=== PATIENT | female | born 1990 | race American Indian/Alaskan Native ===

== ENCOUNTER 2020-12-10 13:08 | Outpatient (CLI) | payer MEDICAID ==
[2020-12-10 13:32] VITALS: BP 103/59
[2020-12-10 14:13] LABS: Bilirubin,Urine NEG (Negative); Blood,Urine SM (Negative); Color,Urine Yellow (Yellow); Mucus,Urine FEW /HPF; Protein,Urine <15 mg/dL mg/dL (Negative); Trichomonas,Urine FEW /HPF; Urobilinogen,Urine < 2.0 mg/dL (<2.0)
[2020-12-10] MEDS ORDERED: LACTATED RINGERS 1,000 ML IV ONE (14:38)
== END 2020-12-10 15:00 | disposition home or self-care (01) ==
LOC: TRG 13:08 → APU 13:10 → TRG 15:00
PROVIDERS: ATTEND Obstetrics & Gynecology
DX: Z34.92 Encounter for supervision of normal pregnancy, unspecified, second trimester (principal); Z3A.23 23 weeks gestation of pregnancy
CPT/HCPCS: 59025; 81001; 87086

== ENCOUNTER 2021-01-18 16:35 | Outpatient (CLI) | payer MEDICAID ==
[2021-01-18 17:28] VITALS: BP 94/50
--- NOTE | 2021-01-18 19:55 | Ultrasound Report ---
ULTRASOUND OBSTETRIC LIMITED ULTRASOUND BIOPHYSICAL PROFILE INDICATION / CLINICAL INFORMATION: decreased movement. COMPARISON: None available. FINDINGS: BREATHING MOVEMENT = 2 GROSS BODY MOVEMENT = 2 TONE = 2 QUALITATIVE AMNIOTIC FLUID VOLUME = 2 TOTAL BIOPHYSICAL SCORE = 8/8 AMNIOTIC FLUID INDEX (cm) = 3.4 PRESENTATION: Cephalic. HEART RATE (beats per minute): 133 ADDITIONAL FINDINGS: None. IMPRESSION: 1. Biophysical Score = 8/8 2. Decreased amniotic fluid index of 3.4 cm. Signer Name: Nik Rowell MD Signed: 01/18/2021 7:50 PM Workstation Name: [id number]
== END 2021-01-18 19:06 | disposition home or self-care (01) ==
LOC: TRG 16:35 → APU 16:45 → TRG 19:06
PROVIDERS: ATTEND Obstetrics & Gynecology
DX: O36.8130 Decreased fetal movements, third trimester, not applicable or unspecified (principal); Z3A.28 28 weeks gestation of pregnancy
CPT/HCPCS: 59025; 76819

== ENCOUNTER 2021-04-07 17:04 | Inpatient (IN) | payer MEDICAID ==
[2021-04-07] MEDS ORDERED: fentaNYL 100 MCG/2 ML INJ IV PRN (18:22)
[2021-04-07] MEDS ORDERED: TERBUTALINE 1 MG/1 ML INJ SUB-Q PRN (18:22)
[2021-04-07] MEDS ORDERED: ACETAMINOPHEN 325 MG TAB PO PRN (18:22)
[2021-04-07] MEDS ORDERED: MINERAL OIL 30 ML ORAL LIQD PO PRN (18:22)
[2021-04-07] MEDS ORDERED: LOPERAMIDE 2 MG CAP PO PRN (18:22)
[2021-04-07] MEDS ORDERED: CARBOPROST TROMETHAMINE 250 MCG/1 ML INJ IM PRN (18:22)
[2021-04-07] MEDS ORDERED: PROMETHAZINE 25 MG TAB PO PRN (18:22)
[2021-04-07] MEDS ORDERED: miSOPROStol 200 MCG TAB PR PRN (18:22)
[2021-04-07] MEDS ORDERED: ONDANSETRON 4 MG/2 ML INJ IV PRN (18:22)
[2021-04-07] MEDS ORDERED: OXYTOCIN 10 UNIT/1 ML INJ IM PRN (18:22)
[2021-04-07] MEDS ORDERED: METHYLERGONOVINE MALEATE 0.2 MG/ML VIAL IM PRN (18:22)
[2021-04-07] MEDS ORDERED: NALOXONE 0.4 MG/1 ML INJ IV PRN (18:22)
--- NOTE | 2021-04-07 18:22 | History and Physical Report ---
History of Present Illness Date of examination: 04/07/21 Date of admission: 04/07/21 17:04 Chief complaint: direct admission for [facility] recommendation of delivery History of present illness: EDC Confirmation: 04/08/2021 Past History : 2 Term Births: 0 Premature Births: 0 Living Children: 0 Para: 0 Mult. Births: 0 Prev : 0 Prev. attempt? 0 Aborta: 1 Elect. Ab: 0 Spont. Ab: 0 Ectopics: 1 # 1 Delivery date: 2018 Weeks Gestation: 4 Delivery type: ectopic Delivery location[place] [facility] [place] Comments: methotexate; "bled alot" no transfusion Risk Factors: Smoked Tobacco Use: Never smoker Smokeless Tobacco Use: Never Passive smoke exposure: no Drug use: no HIV high-risk behavior: no Alcohol use: yes Exercise: no Seatbelt use: 100 % Dietary Counseling: pn yes Past Medical History: Reviewed history from 08/06/2020 and no changes required: Negative Past Medical History Past Surgical History: Reviewed history from 08/06/2020 and no changes required: Tonsillectomy Past Medical History 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 Infection History Hx of STD: GC/CT/Trich HIV Risk Eval: no Hepatitis B Risk Eval: low risk Personal hx. of genital herpes: no Partner hx. of genital herpes: no Varicella/Chicken Pox Status: Immunized TB Risk: no Infection History Comments: Varicella + condyloma Chlamydia 2010 Genetic History Congenital Heart Defect: Mom: no Dad: no Emiliana Disease: Mom: no Dad: no Thalassemia Mom: no Dad: no Neural Tube Defect Mom: no Dad: no Down's Syndrome Mom: no Dad: no Bob-Sachs Mom: no Dad: no Sickle Cell Disease/Trait Mom: no Dad: no Hemophilia Mom: no Dad: no Muscular Dystrophy Mom: no Dad: no Cystic Fibrosis Mom: no Dad: no [place] Chorea Mom: no Dad: no Mental Retardation Mom: no Dad: no Fragile X Mom: no Dad: no Other Genetic/Chromosomal Disorder Mom: no Dad: no Child w/other defect Mom: no Dad: no Enviromental Exposures Xray Exposure: no Medication, drug, or alcohol use since LMP: no Chemical/Other Exposure: no Exposure to Cat Liter: no Hx of Parvovirus (Fifth Disease): no Occupational Exposure to Children: none Active Medications (reviewed today): None Current Allergies (reviewed today): PENICILLIN (Critical) Past History Past Medical History: other (see HPI) Past Surgical History: other (see HPI) 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 (see HPI) Family/Genetic History: other (see HPI) Social history: other (see HPI) - Obstetrical History Expected Date of Delivery: 04/08/21 Actual Gestation: 39 Week(s) 6 Day(s) : 2 Para: 0 Hx # Term Pregnancies: 0 Number of Pregnancies: 0 Spontaneous Abortions: 0 Induced : 1 (ectopic) Number of Living Children: 0 Medications and Allergies Allergies Allergy/AdvReac Type Severity Reaction Status Date / Time Penicillins Allergy Swelling Verified 12/10/20 13:34 Home Medications Medication Instructions Recorded Confirmed Last Taken Type metroNIDAZOLE [Flagyl TAB] 500 mg PO ONCE #4 tab 12/10/20 Unknown Rx Review of Systems All systems: negative Genitourinary: no vaginal bleeding, no leakage of fluid, no contractions Allergic/Immunologic: other (reports allergy to Penicillins) - Physical Exam Breasts: Positive: deferred Cardiovascular: Regular rate Lungs: Positive: Normal air movement Abdomen: Positive: normal appearance, soft. Negative: tenderness, guarding, rigidity, organomegaly Genitourinary (Female): Positive: normal external genitalia, normal perenium Vulva: both: normal Vagina: Positive: normal moisture Uterus: Positive: normal size, normal contour, other (gravid) Anus/Rectum: Positive: normal perianal skin Extremities: Positive: normal - Obstetrical FHR: auscultation normal, category 1 Uterine Contraction Monitor Mode: External Cervical Dilatation: 1 Cervical Effacement Percentage: 50 station: -3 Uterine Contraction Pattern: Regular Uterine Tone Measurement Phase: Contraction Uterine Contraction Intensity: Mild Results Result Diagrams: 04/07/21 Unknown All other labs normal. Tests: (1) Vaginitis/Vaginosis, DNA Probe (256305) Order Note: Clinical Information: SRC:VA Annette species [A] Positive Negative *1 Gardnerella vaginalis Negative Negative *2 Trichomonas vaginalis Negative Negative *3 Tests: (1) RPR, Rfx Qn RPR/Confirm TP (006351) RPR Non Reactive Non Reactive *1 Tests: (2) HIV Ag/Ab with Reflex (092032) HIV Screen 4th Generation wRfx Non Reactive Non Reactive *2 Tests: (1) Profile I (369389) HBsAg Screen Negative Negative *1 RPR Non Reactive Non Reactive *2 Rubella Antibodies, IgG 2.92 index Immune >0.99 *3 Non-immune <0.90 Equivocal 0.90 - 0.99 Immune >0.99 ABO Grouping O *4 Rh Factor Positive *5 Please note: Prior records for this patient's ABO / Rh type are not available for additional verification. Antibody Screen Negative Negative *6 WBC 4.7 x10E3/uL 3.4-10.8 *7 RBC 4.18 x10E6/uL 3.77-5.28 *8 Hemoglobin 11.6 g/dL 11.1-15.9 *9 Hematocrit [L] 33.6 % 34.0-46.6 *10 MCV 80 fL 79-97 *11 MCH 27.8 pg 26.6-33.0 *12 MCHC 34.5 g/dL 31.5-35.7 *13 RDW [H] 15.8 % 11.7-15.4 *14 Platelets 269 x10E3/uL 150-450 *15 Neutrophils 61 % Not Estab. *16 Lymphs 28 % Not Estab. *17 Monocytes 7 % Not Estab. *18 Eos 4 % Not Estab. *19 Basos 0 % Not Estab. *20 ! Immature Cells <No Reported Value> *21 Neutrophils (Absolute) 2.9 x10E3/uL 1.4-7.0 *22 Lymphs (Absolute) 1.3 x10E3/uL 0.7-3.1 *23 Monocytes(Absolute) 0.3 x10E3/uL 0.1-0.9 *24 Eos (Absolute) 0.2 x10E3/uL 0.0-0.4 *25 Baso (Absolute) 0.0 x10E3/uL 0.0-0.2 *26 ! Immature Granulocytes 0 % Not Estab. *27 ! Immature Grans (Abs) 0.0 x10E3/uL 0.0-0.1 *28 ! NRBC <No Reported Value> *29 Hematology Comments: <No Reported Value> *30 Tests: (2) Cystic Fibrosis Profile (489884) ! CF, Screen Comment: *31 RESULTS: Negative for 32 mutations analyzed INTERPRETATION: This individual is negative for the mutations analyzed. This negative result may need further interpretation depending on the clinical indication. This result reduces but does not eliminate the risk to be a CF carrier. COMMENTS: The detection rate varies with ethnicity and is listed below. The presence of an undetected mutation in the CF gene cannot be ruled out. In the absence of family history, the remaining risk that a person with a negative result could have at least one CF mutation is listed in the table. If there is a family history of CF, these risk figures do not apply. As detailed information regarding this individual's family history would permit a more accurate assessment of this individual's risk to be a carrier of cystic fibrosis, please contact Victoria Plumb at for a revised report. Mutation Detection Detection rates are based on mutation Rates among Ethnic frequencies in patients affected with Groups cystic fibrosis. Among individuals with an atypical or mild presentation (e.g. congenital absence of the vas deferens, pancreatitis) detection rates may vary from those provided here: Carrier risk reduction when no family history Detection Ethnicity Rate Ashkenazi 08/03 to 97% Congregational 08/02 to 90% (non-) -Mauritian to 69% 46 to 73% to 55% This interpretation is based on the clinical and family relationship information provided and the current understanding of the molecular genetics of this condition. MUTATIONS ANALYZED: G85E V520F G5923E 2183AA to G R117H G542X N1762Q 2184delA R334W S549N 394delTT 2789+5G to A R347H S549R 621+1G to T 3120+1G to A R347P G551D 711+1G to T 3659delC A455E R553X 1078delT 3849+10kbC to T [id number] R560T 1717-1G to A 3876delA [id number] K4505H 1898+1G to A 3905insT METHODS/LIMITATIONS: DNA is isolated from the sample and tested for the 32 CF mutations on the [place] Array Platform ([employer]). Regions of the CFTR gene are amplified enzymatically and subjected to a solution-phase multiplex allele-specific primer extension with subsequent hybridization to a bead array and fluorescence detection. Polymorphisms F508C, I506V and I507V are included in this panel to rule out false positive [id number] homozygotes. Reflex testing of 5T is included in the panel for R117H interpretation. False positive or negative results may occur for reasons that include genetic variants, blood transfusions, bone marrow transplantation, erroneous representation of family relationships or contamination of a sample with maternal cells. REFERENCES: 1. Updates on Carrier Screening for Cystic Fibrosis. (2011) Am J Ob Gynecol 117(4):6878-6954 2. Hao et al. (2004) [facility] 6:387-91 3. Herrera, et al. (2002) [facility] Med 4:379-391 4. Preconception and carrier screening for cystic fibrosis: (2001)ACOG.ACMG publication Results Released By: Vinod Magaña, Ph.D., Research Intern Released By: Vinod Magaña, Ph.D., Director ! Comment: SPRCS *32 The assay provides information intended to be used for carrier screening in adults of reproductive age, as an aid in screening, and as a confirmatory test for another medically established diagnosis in newborns and children. The test is not indicated for use in diagnostic testing, pre-implantation screening, or for any stand-alone diagnostic purposes without confirmation by another medically established diagnostic product or procedure. Tests: (3) HB Solu + Rflx Frac (498697) Hemoglobin (Hgb) Solubility Negative Negative *33 Tests: (4) HIV Ag/Ab with Reflex (476028) HIV Screen 4th Generation wRfx Non Reactive Non Reactive *34 Tests: (5) HCV Antibody reflex to ANNETTE (140780) ! HCV Ab 0.9 s/co ratio 0.0-0.9 *35 Tests: (6) Interpretation: ([id number]) ! Interpretation: SPRCS *36 Negative Not infected with HCV, unless recent infection is suspected or other evidence exists to indicate HCV infection. Ultrasound: other (04/06/21 [facility] US: BPP /, EFW 39% 3435g, VTX, SINCERE 9.7cm) Assessment and Plan Plan of care discussed. Questions encouraged and answered. Pt agrees to cervidil placement. - Patient Problems (1) 39 weeks gestation of Current Visit: Yes Status: Acute Plan to address problem: admit to labor draw labs and start IV 500mL LR Bolus requested to be administered with IV start GBS prophylaxis treatment for unknown status when in active labor or with ROM (2) Velamentous insertion of umbilical cord Current Visit: Yes Status: Acute Plan to address problem: continuous monitoring
[2021-04-07] MEDS ORDERED: ePHEDrine SULFATE 50 MG/1 ML INJ IV PRN (18:40)
[2021-04-07] MEDS ORDERED: LIDOCAINE (2%) 20 MG/1 ML VIAL 20 ML MDV INFILTRATI ONE (18:45)
[2021-04-07 18:47] LABS: Hematocrit 33.2 % (30.3-42.9); Hemoglobin 11.9 gm/dl (10.1-14.3); Mean Corpuscular HGB Conc 36 % (30-34); Mean Corpuscular Volume 83 fl (79-97); Platelet Count 203 K/mm3 (140-440); Red Blood Count 4.01 M/mm3 (3.65-5.03); Red Cell Distribution Width 15.3 % (13.2-15.2)
[2021-04-07] MEDS ORDERED: OXYTOCIN DRIP 30 UNITS/500 ML BAG IV SCH ×2 (19:00)
[2021-04-07] MEDS: LACTATED RINGERS 1,000 ML IV SCH (19:36)
[2021-04-07] MEDS ORDERED: DINOPROSTONE 10 MG VAG SUPP VG ONE (20:00)
--- NOTE | 2021-04-07 21:22 | Event Note ---
Date: 04/07/21 Pt with contractions q2mins. Denies complaints at this time. Plan of care discussed. Questions encouraged and answered. Pt verbalizes understanding and agrees to POC. Cooks catheter placed without difficulty and each balloon inflated with 60mL. Pt tolerated well. Plan to start Pitocin per protocol if contraction pattern allows. Anticipate . Dr. Torres aware.
[2021-04-07] MEDS: BUTORPHANOL 2 MG/1 ML INJ IV PRN (21:30)
[2021-04-08] MEDS: BUTORPHANOL 2 MG/1 ML INJ IV PRN (07:13)
--- NOTE | 2021-04-08 07:54 | Event Note ---
Date: 04/08/21 Pt resting in bed, no complaints at this time. Cooks catheter in place since 2129. Cont. titrating pit for regular contractions, will reassess PRN. Reviewed induction w/ Dr. Foley, will leave Cooks in place at this time.
[2021-04-08] MEDS: LACTATED RINGERS 1,000 ML IV SCH ×2 (08:49→15:12)
--- NOTE | 2021-04-08 12:50 | Progress Note ---
Assessment and Plan Cooks catheter firmly in place, pit up to 12mu/min, Cooks catheter secured w/ traction to inner thigh, pt tolerating well, will reassess PRN - Patient Problems (1) 40 weeks gestation of Current Visit: Yes Status: Acute Subjective - Subjective Date of service: 04/08/21 Principal diagnosis: 40 WEEKS; IOL for Velamentous insertion Patient reports: movement normal, contractions Objective - Vital Signs Vital Signs: Vital Signs - 12hr 04/08/21 04/08/21 04/08/21 00:48 00:53 00:58 Temperature Pulse Rate 75 70 82 Respiratory Rate Blood Pressure Blood Pressure [Right] O2 Sat by Pulse 100 100 99 Oximetry 04/08/21 04/08/21 04/08/21 01:03 01:08 01:13 Temperature Pulse Rate 79 76 73 Respiratory Rate Blood Pressure Blood Pressure [Right] O2 Sat by Pulse 99 99 100 Oximetry 04/08/21 04/08/21 04/08/21 01:18 01:23 01:28 Temperature Pulse Rate 65 89 82 Respiratory Rate Blood Pressure Blood Pressure [Right] O2 Sat by Pulse 100 99 100 Oximetry 04/08/21 04/08/21 04/08/21 01:30 01:33 01:38 Temperature Pulse Rate 67 77 73 Respiratory Rate Blood Pressure 110/58 Blood Pressure [Right] O2 Sat by Pulse 100 100 Oximetry 04/08/21 04/08/21 04/08/21 01:43 01:47 01:53 Temperature Pulse Rate 78 72 73 Respiratory Rate Blood Pressure Blood Pressure [Right] O2 Sat by Pulse 100 100 100 Oximetry 04/08/21 04/08/21 04/08/21 01:58 02:03 02:08 Temperature Pulse Rate 73 82 73 Respiratory Rate Blood Pressure Blood Pressure [Right] O2 Sat by Pulse 100 99 100 Oximetry 04/08/21 04/08/21 04/08/21 02:13 02:18 02:23 Temperature Pulse Rate 86 76 83 Respiratory Rate Blood Pressure Blood Pressure [Right] O2 Sat by Pulse 99 100 99 Oximetry 04/08/21 04/08/21 04/08/21 02:28 02:30 02:33 Temperature Pulse Rate 77 84 77 Respiratory Rate Blood Pressure 112/67 Blood Pressure [Right] O2 Sat by Pulse 100 100 Oximetry 04/08/21 04/08/21 04/08/21 02:38 02:43 02:48 Temperature Pulse Rate 79 79 82 Respiratory Rate Blood Pressure Blood Pressure [Right] O2 Sat by Pulse 100 100 100 Oximetry 04/08/21 04/08/21 04/08/21 02:53 02:58 03:02 Temperature Pulse Rate 81 86 75 Respiratory Rate Blood Pressure Blood Pressure [Right] O2 Sat by Pulse 100 100 100 Oximetry 04/08/21 04/08/21 04/08/21 03:08 03:13 03:18 Temperature Pulse Rate 105 H 80 74 Respiratory Rate Blood Pressure Blood Pressure [Right] O2 Sat by Pulse 100 98 99 Oximetry 04/08/21 04/08/21 04/08/21 03:23 03:28 03:30 Temperature Pulse Rate 86 95 H 82 Respiratory Rate Blood Pressure 110/61 Blood Pressure [Right] O2 Sat by Pulse 99 100 Oximetry 04/08/21 04/08/21 04/08/21 03:33 03:38 03:43 Temperature Pulse Rate 89 82 85 Respiratory Rate Blood Pressure Blood Pressure [Right] O2 Sat by Pulse 99 99 99 Oximetry 04/08/21 04/08/21 04/08/21 03:48 03:53 03:58 Temperature Pulse Rate 90 80 88 Respiratory Rate Blood Pressure Blood Pressure [Right] O2 Sat by Pulse 99 98 100 Oximetry 04/08/21 04/08/21 04/08/21 04:03 04:08 04:13 Temperature Pulse Rate 80 85 86 Respiratory Rate Blood Pressure Blood Pressure [Right] O2 Sat by Pulse 98 98 100 Oximetry 04/08/21 04/08/21 04/08/21 04:18 04:23 04:28 Temperature Pulse Rate 78 88 93 H Respiratory Rate Blood Pressure Blood Pressure [Right] O2 Sat by Pulse 100 99 100 Oximetry 04/08/21 04/08/21 04/08/21 04:29 04:33 04:38 Temperature Pulse Rate 80 80 81 Respiratory Rate Blood Pressure 122/76 Blood Pressure [Right] O2 Sat by Pulse 99 100 Oximetry 04/08/21 04/08/21 04/08/21 04:43 04:55 05:00 Temperature Pulse Rate 80 98 H 100 H Respiratory Rate Blood Pressure Blood Pressure [Right] O2 Sat by Pulse 99 93 100 Oximetry 04/08/21 04/08/21 04/08/21 05:05 05:10 05:15 Temperature Pulse Rate 83 82 93 H Respiratory Rate Blood Pressure Blood Pressure [Right] O2 Sat by Pulse 100 100 100 Oximetry 04/08/21 04/08/21 04/08/21 05:20 05:25 05:29 Temperature Pulse Rate 83 84 80 Respiratory Rate Blood Pressure 121/76 Blood Pressure [Right] O2 Sat by Pulse 100 100 Oximetry 04/08/21 04/08/21 04/08/21 05:30 05:35 05:40 Temperature Pulse Rate 90 90 74 Respiratory Rate Blood Pressure Blood Pressure [Right] O2 Sat by Pulse 99 100 100 Oximetry 04/08/21 04/08/21 04/08/21 05:45 05:50 05:55 Temperature Pulse Rate 79 109 H 85 Respiratory Rate Blood Pressure Blood Pressure [Right] O2 Sat by Pulse 100 99 96 Oximetry 04/08/21 04/08/21 04/08/21 06:00 06:04 06:10 Temperature Pulse Rate 76 74 74 Respiratory Rate Blood Pressure Blood Pressure [Right] O2 Sat by Pulse 99 99 99 Oximetry 04/08/21 04/08/21 04/08/21 06:15 06:20 06:24 Temperature Pulse Rate 73 89 74 Respiratory Rate Blood Pressure Blood Pressure [Right] O2 Sat by Pulse 99 98 98 Oximetry 04/08/21 04/08/21 04/08/21 06:29 06:30 06:35 Temperature Pulse Rate 75 71 87 Respiratory Rate Blood Pressure 109/58 Blood Pressure [Right] O2 Sat by Pulse 99 99 Oximetry 04/08/21 04/08/21 04/08/21 06:40 06:45 06:49 Temperature Pulse Rate 75 77 78 Respiratory Rate Blood Pressure Blood Pressure [Right] O2 Sat by Pulse 99 100 99 Oximetry 04/08/21 04/08/21 04/08/21 06:54 06:59 07:04 Temperature Pulse Rate 75 79 84 Respiratory Rate Blood Pressure Blood Pressure [Right] O2 Sat by Pulse 99 99 100 Oximetry 04/08/21 04/08/21 04/08/21 07:13 07:16 07:18 Temperature Pulse Rate 82 85 83 Respiratory Rate Blood Pressure 126/76 Blood Pressure [Right] O2 Sat by Pulse 100 99 Oximetry 04/08/21 04/08/21 04/08/21 07:23 07:28 07:30 Temperature Pulse Rate 88 93 H 80 Respiratory Rate Blood Pressure 137/83 Blood Pressure [Right] O2 Sat by Pulse 100 100 93 Oximetry 04/08/21 04/08/21 04/08/21 07:33 07:38 07:43 Temperature Pulse Rate 82 89 84 Respiratory Rate Blood Pressure Blood Pressure [Right] O2 Sat by Pulse 100 100 100 Oximetry 04/08/21 04/08/21 04/08/21 07:51 07:56 08:01 Temperature Pulse Rate 83 75 78 Respiratory Rate Blood Pressure Blood Pressure [Right] O2 Sat by Pulse 98 99 98 Oximetry 04/08/21 04/08/21 04/08/21 08:06 08:11 08:16 Temperature Pulse Rate 77 74 74 Respiratory Rate Blood Pressure Blood Pressure [Right] O2 Sat by Pulse 99 99 100 Oximetry 04/08/21 04/08/21 04/08/21 08:21 08:26 08:29 Temperature Pulse Rate 75 77 83 Respiratory Rate Blood Pressure 116/72 Blood Pressure [Right] O2 Sat by Pulse 100 99 Oximetry 04/08/21 04/08/21 04/08/21 08:31 08:36 08:41 Temperature Pulse Rate 76 80 68 Respiratory Rate Blood Pressure Blood Pressure [Right] O2 Sat by Pulse 98 99 98 Oximetry 04/08/21 04/08/21 04/08/21 08:50 08:55 09:00 Temperature Pulse Rate 81 75 77 Respiratory Rate Blood Pressure Blood Pressure [Right] O2 Sat by Pulse 99 99 98 Oximetry 04/08/21 04/08/21 04/08/21 09:05 09:10 09:15 Temperature Pulse Rate 75 74 73 Respiratory Rate Blood Pressure Blood Pressure [Right] O2 Sat by Pulse 99 100 100 Oximetry 04/08/21 04/08/21 04/08/21 09:20 09:23 09:25 Temperature Pulse Rate 74 75 73 Respiratory Rate Blood Pressure Blood Pressure [Right] O2 Sat by Pulse 99 89 99 Oximetry 04/08/21 04/08/21 04/08/21 09:30 09:32 09:35 Temperature Pulse Rate 79 87 76 Respiratory Rate Blood Pressure 112/56 Blood Pressure [Right] O2 Sat by Pulse 97 91 98 Oximetry 04/08/21 04/08/21 04/08/21 09:40 09:45 09:50 Temperature Pulse Rate 72 65 67 Respiratory Rate Blood Pressure Blood Pressure [Right] O2 Sat by Pulse 99 99 100 Oximetry 04/08/21 04/08/21 04/08/21 09:55 10:00 10:03 Temperature Pulse Rate 62 81 86 Respiratory Rate Blood Pressure Blood Pressure [Right] O2 Sat by Pulse 100 98 87 Oximetry 04/08/21 04/08/21 04/08/21 10:05 10:10 10:11 Temperature Pulse Rate 83 78 82 Respiratory Rate Blood Pressure Blood Pressure [Right] O2 Sat by Pulse 88 97 94 Oximetry 04/08/21 04/08/21 04/08/21 10:15 10:19 10:20 Temperature Pulse Rate 80 74 77 Respiratory Rate Blood Pressure Blood Pressure [Right] O2 Sat by Pulse 98 91 97 Oximetry 04/08/21 04/08/21 04/08/21 10:27 10:28 10:31 Temperature Pulse Rate 89 82 Respiratory Rate Blood Pressure 115/67 Blood Pressure [Right] O2 Sat by Pulse 79 L 94 Oximetry 04/08/21 04/08/21 04/08/21 10:32 10:37 10:42 Temperature Pulse Rate 89 68 73 Respiratory Rate Blood Pressure Blood Pressure [Right] O2 Sat by Pulse 98 100 100 Oximetry 04/08/21 04/08/21 04/08/21 10:47 10:52 10:57 Temperature Pulse Rate 74 72 77 Respiratory Rate Blood Pressure Blood Pressure [Right] O2 Sat by Pulse 100 100 100 Oximetry 04/08/21 04/08/21 04/08/21 11:02 11:07 11:12 Temperature Pulse Rate 76 69 71 Respiratory Rate Blood Pressure Blood Pressure [Right] O2 Sat by Pulse 100 100 100 Oximetry 04/08/21 04/08/21 04/08/21 11:17 11:22 11:35 Temperature Pulse Rate 76 85 57 L Respiratory Rate Blood Pressure Blood Pressure [Right] O2 Sat by Pulse 100 100 97 Oximetry 04/08/21 04/08/21 04/08/21 11:36 11:40 11:45 Temperature Pulse Rate 81 74 78 Respiratory Rate Blood Pressure Blood Pressure [Right] O2 Sat by Pulse 92 100 92 Oximetry 04/08/21 04/08/21 04/08/21 11:46 11:50 11:55 Temperature Pulse Rate 67 64 67 Respiratory Rate Blood Pressure 121/71 Blood Pressure [Right] O2 Sat by Pulse 100 100 Oximetry 04/08/21 04/08/21 04/08/21 11:57 12:00 12:05 Temperature Pulse Rate 73 67 68 Respiratory Rate Blood Pressure Blood Pressure [Right] O2 Sat by Pulse 92 100 100 Oximetry 04/08/21 04/08/21 04/08/21 12:10 12:13 12:15 Temperature 98.8 F Pulse Rate 69 74 72 Respiratory 18 Rate Blood Pressure Blood Pressure 121/71 [Right] O2 Sat by Pulse 100 100 100 Oximetry 04/08/21 04/08/21 04/08/21 12:20 12:22 12:25 Temperature Pulse Rate 67 79 83 Respiratory Rate Blood Pressure Blood Pressure [Right] O2 Sat by Pulse 100 94 99 Oximetry 04/08/21 04/08/21 04/08/21 12:30 12:31 12:35 Temperature Pulse Rate 69 68 77 Respiratory Rate Blood Pressure 110/58 Blood Pressure [Right] O2 Sat by Pulse 100 100 Oximetry 04/08/21 04/08/21 12:40 12:45 Temperature Pulse Rate 82 79 Respiratory Rate Blood Pressure Blood Pressure [Right] O2 Sat by Pulse 100 100 Oximetry - Exam Cardiovascular: Regular rate Lungs: Normal air movement Abdomen: Present: normal appearance, soft. Absent: distention, tenderness Vulva: both: normal Uterus: Present: normal FHR: auscultation normal, category 1 Uterine Contraction Monitor Mode: External Uterine Contraction Frequency (min): 2-4 Uterine Contraction Pattern: Regular Uterine Tone Measurement Phase: Resting Uterine Contraction Intensity: Mild - Labs Labs: Abnormal Labs 04/07/21 Unknown MCHC 36 H RDW 15.3 H Laboratory Results - last 24 hr 04/07/21 04/07/21 04/07/21 18:30 Unknown Unknown WBC 7.6 RBC 4.01 Hgb 11.9 Hct 33.2 MCV 83 MCH 30 MCHC 36 H RDW 15.3 H Plt Count 203 Syphilis IgG Antibody Nonreactive Blood Type O POSITIVE Antibody Screen Negative
[2021-04-08] MEDS ORDERED: NALOXONE 2 MG/2 ML INJ IV PRN (15:13)
[2021-04-08] MEDS ORDERED: ePHEDrine SULFATE 50 MG/1 ML INJ IV PRN (15:13)
--- NOTE | 2021-04-08 15:13 | Anesthesia Consultation ---
Anesthesia Consult and Med Hx Date of service: 04/08/21 - Airway Anesthetic Teeth Evaluation: Good ROM Head & Neck: Adequate Mental/Hyoid Distance: Adequate Mallampati Class: Class II Intubation Access Assessment: Probably Good - Pulmonary Exam CTA: Yes - Cardiac Exam Cardiac Exam: RRR - Pre-Operative Health Status ASA Pre-Surgery Classification: ASA2 Proposed Anesthetic Plan: Epidural - Pulmonary Hx Asthma: No COPD: No Hx Pneumonia: No - Cardiovascular System Hx Hypertension: No - Central Nervous System Hx Seizures: No Hx Psychiatric Problems: No - Endocrine Hx Renal Disease: No Hx End Stage Renal Disease: No Hx Hypothyroidism: No Hx Hyperthyroidism: No - Hematic Hx Anemia: No Hx Sickle Cell Disease: No - Other Systems Hx Alcohol Use: No
--- NOTE | 2021-04-08 15:36 | Progress Note ---
Labor Epidural - Labor Epidural Start Time: 15:26 Stop Time: 15:28 Performed by:: ELVER HARDIN Procedure: Patient is requesting epidural for labor pain. H&P, and labs reviewed. Procedure explained, questions answered, consent obtained. Patient in sitting position with blood pressure cuff and pulse ox on and working. Timeout performed immediately before start of procedure. Sterile chlorahexadine 0.5% prep/drape. 3 mL 1% lidocaine skin wheal at L[3]-L[4]. 17-gauge tuohy epidural needle advanced to [id number] with saline at [7] cm. 25-gauge spinal needle advanced until clear, free-flowing CSF. Intrathecal dexmedetomidine [5] mcg administered and needle removed. Epidural catheter advanced to [12] cm, negative aspiration for blood and csf, negative test dose 3 ml 1.5% lidocaine with epinephrine. Sterile steri-strips and tegaderm applied, followed by tape reinforcement. Patient tolerated procedure well.
[2021-04-08] MEDS ORDERED: fentaNYL-BUPIV 2 MCG/ML-0.125% 200 MCG/100 ML BAG EPIDURAL SCH (16:00)
--- NOTE | 2021-04-08 16:39 | Progress Note ---
Assessment and Plan patient comfortable s/p epidural placement, SROM clear fluid. head very well applied and pushing though cervix. Anticipate . - Patient Problems (1) 40 weeks gestation of Current Visit: Yes Status: Acute (2) Velamentous insertion of umbilical cord Current Visit: Yes Status: Acute Qualifiers: Trimester: third trimester Qualified Code(s): O43.123 - Velamentous insertion of umbilical cord, third trimester Subjective - Subjective Date of service: 04/08/21 Principal diagnosis: 40 WEEKS; IOL for Velamentous insertion Patient reports: loss of fluid, movement normal, other (rectal pressure) Objective - Vital Signs Vital Signs: Vital Signs - 12hr 04/08/21 04/08/21 04/08/21 04:38 04:43 04:55 Temperature Pulse Rate 81 80 98 H Respiratory Rate Blood Pressure Blood Pressure [Right] O2 Sat by Pulse 100 99 93 Oximetry 04/08/21 04/08/21 04/08/21 05:00 05:05 05:10 Temperature Pulse Rate 100 H 83 82 Respiratory Rate Blood Pressure Blood Pressure [Right] O2 Sat by Pulse 100 100 100 Oximetry 04/08/21 04/08/21 04/08/21 05:15 05:20 05:25 Temperature Pulse Rate 93 H 83 84 Respiratory Rate Blood Pressure Blood Pressure [Right] O2 Sat by Pulse 100 100 100 Oximetry 04/08/21 04/08/21 04/08/21 05:29 05:30 05:35 Temperature Pulse Rate 80 90 90 Respiratory Rate Blood Pressure 121/76 Blood Pressure [Right] O2 Sat by Pulse 99 100 Oximetry 04/08/21 04/08/21 04/08/21 05:40 05:45 05:50 Temperature Pulse Rate 74 79 109 H Respiratory Rate Blood Pressure Blood Pressure [Right] O2 Sat by Pulse 100 100 99 Oximetry 04/08/21 04/08/21 04/08/21 05:55 06:00 06:04 Temperature Pulse Rate 85 76 74 Respiratory Rate Blood Pressure Blood Pressure [Right] O2 Sat by Pulse 96 99 99 Oximetry 04/08/21 04/08/21 04/08/21 06:10 06:15 06:20 Temperature Pulse Rate 74 73 89 Respiratory Rate Blood Pressure Blood Pressure [Right] O2 Sat by Pulse 99 99 98 Oximetry 04/08/21 04/08/21 04/08/21 06:24 06:29 06:30 Temperature Pulse Rate 74 75 71 Respiratory Rate Blood Pressure 109/58 Blood Pressure [Right] O2 Sat by Pulse 98 99 Oximetry 04/08/21 04/08/21 04/08/21 06:35 06:40 06:45 Temperature Pulse Rate 87 75 77 Respiratory Rate Blood Pressure Blood Pressure [Right] O2 Sat by Pulse 99 99 100 Oximetry 04/08/21 04/08/21 04/08/21 06:49 06:54 06:59 Temperature Pulse Rate 78 75 79 Respiratory Rate Blood Pressure Blood Pressure [Right] O2 Sat by Pulse 99 99 99 Oximetry 04/08/21 04/08/21 04/08/21 07:04 07:13 07:16 Temperature Pulse Rate 84 82 85 Respiratory Rate Blood Pressure 126/76 Blood Pressure [Right] O2 Sat by Pulse 100 100 Oximetry 04/08/21 04/08/21 04/08/21 07:18 07:23 07:28 Temperature Pulse Rate 83 88 93 H Respiratory Rate Blood Pressure Blood Pressure [Right] O2 Sat by Pulse 99 100 100 Oximetry 04/08/21 04/08/21 04/08/21 07:30 07:33 07:38 Temperature Pulse Rate 80 82 89 Respiratory Rate Blood Pressure 137/83 Blood Pressure [Right] O2 Sat by Pulse 93 100 100 Oximetry 04/08/21 04/08/21 04/08/21 07:43 07:51 07:56 Temperature Pulse Rate 84 83 75 Respiratory Rate Blood Pressure Blood Pressure [Right] O2 Sat by Pulse 100 98 99 Oximetry 04/08/21 04/08/21 04/08/21 08:01 08:06 08:11 Temperature Pulse Rate 78 77 74 Respiratory Rate Blood Pressure Blood Pressure [Right] O2 Sat by Pulse 98 99 99 Oximetry 04/08/21 04/08/21 04/08/21 08:16 08:21 08:26 Temperature Pulse Rate 74 75 77 Respiratory Rate Blood Pressure Blood Pressure [Right] O2 Sat by Pulse 100 100 99 Oximetry 04/08/21 04/08/21 04/08/21 08:29 08:31 08:36 Temperature Pulse Rate 83 76 80 Respiratory Rate Blood Pressure 116/72 Blood Pressure [Right] O2 Sat by Pulse 98 99 Oximetry 04/08/21 04/08/21 04/08/21 08:41 08:50 08:55 Temperature Pulse Rate 68 81 75 Respiratory Rate Blood Pressure Blood Pressure [Right] O2 Sat by Pulse 98 99 99 Oximetry 04/08/21 04/08/21 04/08/21 09:00 09:05 09:10 Temperature Pulse Rate 77 75 74 Respiratory Rate Blood Pressure Blood Pressure [Right] O2 Sat by Pulse 98 99 100 Oximetry 04/08/21 04/08/21 04/08/21 09:15 09:20 09:23 Temperature Pulse Rate 73 74 75 Respiratory Rate Blood Pressure Blood Pressure [Right] O2 Sat by Pulse 100 99 89 Oximetry 04/08/21 04/08/21 04/08/21 09:25 09:30 09:32 Temperature Pulse Rate 73 79 87 Respiratory Rate Blood Pressure 112/56 Blood Pressure [Right] O2 Sat by Pulse 99 97 91 Oximetry 04/08/21 04/08/21 04/08/21 09:35 09:40 09:45 Temperature Pulse Rate 76 72 65 Respiratory Rate Blood Pressure Blood Pressure [Right] O2 Sat by Pulse 98 99 99 Oximetry 04/08/21 04/08/21 04/08/21 09:50 09:55 10:00 Temperature Pulse Rate 67 62 81 Respiratory Rate Blood Pressure Blood Pressure [Right] O2 Sat by Pulse 100 100 98 Oximetry 04/08/21 04/08/21 04/08/21 10:03 10:05 10:10 Temperature Pulse Rate 86 83 78 Respiratory Rate Blood Pressure Blood Pressure [Right] O2 Sat by Pulse 87 88 97 Oximetry 04/08/21 04/08/21 04/08/21 10:11 10:15 10:19 Temperature Pulse Rate 82 80 74 Respiratory Rate Blood Pressure Blood Pressure [Right] O2 Sat by Pulse 94 98 91 Oximetry 04/08/21 04/08/21 04/08/21 10:20 10:27 10:28 Temperature Pulse Rate 77 89 Respiratory Rate Blood Pressure Blood Pressure [Right] O2 Sat by Pulse 97 79 L 94 Oximetry 04/08/21 04/08/21 04/08/21 10:31 10:32 10:37 Temperature Pulse Rate 82 89 68 Respiratory Rate Blood Pressure 115/67 Blood Pressure [Right] O2 Sat by Pulse 98 100 Oximetry 04/08/21 04/08/21 04/08/21 10:42 10:47 10:52 Temperature Pulse Rate 73 74 72 Respiratory Rate Blood Pressure Blood Pressure [Right] O2 Sat by Pulse 100 100 100 Oximetry 04/08/21 04/08/21 04/08/21 10:57 11:02 11:07 Temperature Pulse Rate 77 76 69 Respiratory Rate Blood Pressure Blood Pressure [Right] O2 Sat by Pulse 100 100 100 Oximetry 04/08/21 04/08/21 04/08/21 11:12 11:17 11:22 Temperature Pulse Rate 71 76 85 Respiratory Rate Blood Pressure Blood Pressure [Right] O2 Sat by Pulse 100 100 100 Oximetry 04/08/21 04/08/21 04/08/21 11:35 11:36 11:40 Temperature Pulse Rate 57 L 81 74 Respiratory Rate Blood Pressure Blood Pressure [Right] O2 Sat by Pulse 97 92 100 Oximetry 04/08/21 04/08/21 04/08/21 11:45 11:46 11:50 Temperature Pulse Rate 78 67 64 Respiratory Rate Blood Pressure 121/71 Blood Pressure [Right] O2 Sat by Pulse 92 100 Oximetry 04/08/21 04/08/21 04/08/21 11:55 11:57 12:00 Temperature Pulse Rate 67 73 67 Respiratory Rate Blood Pressure Blood Pressure [Right] O2 Sat by Pulse 100 92 100 Oximetry 04/08/21 04/08/21 04/08/21 12:05 12:10 12:13 Temperature 98.8 F Pulse Rate 68 69 74 Respiratory 18 Rate Blood Pressure Blood Pressure 121/71 [Right] O2 Sat by Pulse 100 100 100 Oximetry 04/08/21 04/08/21 04/08/21 12:15 12:20 12:22 Temperature Pulse Rate 72 67 79 Respiratory Rate Blood Pressure Blood Pressure [Right] O2 Sat by Pulse 100 100 94 Oximetry 04/08/21 04/08/21 04/08/21 12:25 12:30 12:31 Temperature Pulse Rate 83 69 68 Respiratory Rate Blood Pressure 110/58 Blood Pressure [Right] O2 Sat by Pulse 99 100 Oximetry 04/08/21 04/08/21 04/08/21 12:35 12:40 12:45 Temperature Pulse Rate 77 82 79 Respiratory Rate Blood Pressure Blood Pressure [Right] O2 Sat by Pulse 100 100 100 Oximetry 04/08/21 04/08/21 04/08/21 12:50 12:55 13:00 Temperature Pulse Rate 76 76 72 Respiratory Rate Blood Pressure Blood Pressure [Right] O2 Sat by Pulse 99 99 100 Oximetry 04/08/21 04/08/21 04/08/21 13:05 13:10 13:15 Temperature Pulse Rate 75 72 70 Respiratory Rate Blood Pressure Blood Pressure [Right] O2 Sat by Pulse 100 99 99 Oximetry 04/08/21 04/08/21 04/08/21 13:20 13:25 13:29 Temperature Pulse Rate 77 76 73 Respiratory Rate Blood Pressure 125/61 Blood Pressure [Right] O2 Sat by Pulse 100 100 Oximetry 04/08/21 04/08/21 04/08/21 13:30 13:35 13:40 Temperature Pulse Rate 82 70 72 Respiratory Rate Blood Pressure Blood Pressure [Right] O2 Sat by Pulse 100 100 100 Oximetry 04/08/21 04/08/21 04/08/21 13:45 13:50 14:01 Temperature Pulse Rate 83 78 Respiratory Rate Blood Pressure Blood Pressure [Right] O2 Sat by Pulse 100 100 95 Oximetry 04/08/21 04/08/21 04/08/21 14:06 14:11 14:16 Temperature Pulse Rate 88 78 72 Respiratory Rate Blood Pressure Blood Pressure [Right] O2 Sat by Pulse 100 100 99 Oximetry 04/08/21 04/08/21 04/08/21 14:21 14:26 14:29 Temperature Pulse Rate 70 76 75 Respiratory Rate Blood Pressure 123/56 Blood Pressure [Right] O2 Sat by Pulse 100 100 Oximetry 04/08/21 04/08/21 04/08/21 14:45 14:50 14:55 Temperature Pulse Rate 74 80 90 Respiratory Rate Blood Pressure Blood Pressure [Right] O2 Sat by Pulse 100 100 100 Oximetry 04/08/21 04/08/21 04/08/21 15:00 15:05 15:10 Temperature Pulse Rate 73 79 79 Respiratory Rate Blood Pressure Blood Pressure [Right] O2 Sat by Pulse 100 100 99 Oximetry 04/08/21 04/08/21 04/08/21 15:17 15:19 15:22 Temperature Pulse Rate 79 72 77 Respiratory Rate Blood Pressure 138/80 Blood Pressure [Right] O2 Sat by Pulse 98 100 Oximetry 04/08/21 04/08/21 04/08/21 15:27 15:28 15:30 Temperature Pulse Rate 88 83 76 Respiratory Rate Blood Pressure 154/80 136/65 Blood Pressure [Right] O2 Sat by Pulse 100 Oximetry 04/08/21 04/08/21 04/08/21 15:32 15:37 15:41 Temperature Pulse Rate 72 74 75 Respiratory Rate Blood Pressure 135/71 136/73 Blood Pressure [Right] O2 Sat by Pulse 99 98 Oximetry 04/08/21 04/08/21 04/08/21 15:42 15:47 15:52 Temperature Pulse Rate 79 90 91 H Respiratory Rate Blood Pressure Blood Pressure [Right] O2 Sat by Pulse 99 99 100 Oximetry 04/08/21 04/08/21 04/08/21 15:56 15:57 16:02 Temperature Pulse Rate 70 85 85 Respiratory Rate Blood Pressure 135/72 Blood Pressure [Right] O2 Sat by Pulse 100 100 Oximetry 04/08/21 04/08/21 04/08/21 16:07 16:11 16:12 Temperature Pulse Rate 77 71 85 Respiratory Rate Blood Pressure 131/75 Blood Pressure [Right] O2 Sat by Pulse 100 100 Oximetry 04/08/21 04/08/21 04/08/21 16:17 16:22 16:27 Temperature Pulse Rate 73 65 62 Respiratory Rate Blood Pressure 126/58 Blood Pressure [Right] O2 Sat by Pulse 100 100 100 Oximetry 04/08/21 04/08/21 16:30 16:32 Temperature Pulse Rate 73 71 Respiratory Rate Blood Pressure Blood Pressure [Right] O2 Sat by Pulse 88 100 Oximetry - Exam Lungs: Normal air movement Abdomen: Present: soft Uterus: Present: normal FHR: category 1 Uterine Contraction Monitor Mode: External Cervical Dilatation: 6.5 Cervical Effacement Percentage: 80 station: 0 Uterine Contraction Frequency (min): 2-3 Uterine Contraction Duration: 60 Uterine Contraction Pattern: Regular Uterine Tone Measurement Phase: Contraction Uterine Contraction Intensity: Strong/Firm Extremities: normal - Labs Labs: Abnormal Labs 04/07/21 Unknown MCHC 36 H RDW 15.3 H Laboratory Results - last 24 hr 04/07/21 04/07/21 04/07/21 18:30 Unknown Unknown WBC 7.6 RBC 4.01 Hgb 11.9 Hct 33.2 MCV 83 MCH 30 MCHC 36 H RDW 15.3 H Plt Count 203 Syphilis IgG Antibody Nonreactive Coronavirus (PCR) Blood Type O POSITIVE Antibody Screen Negative 04/08/21 09:35 WBC RBC Hgb Hct MCV MCH MCHC RDW Plt Count Syphilis IgG Antibody Coronavirus (PCR) Negative Blood Type Antibody Screen
--- NOTE | 2021-04-08 18:18 | Progress Note ---
Assessment and Plan early variables noted while reviewing FHT, SVE now with good decent of head with ctx. Cervix felt all around but mostly on pt's left side. Will continue to monitor patient, anticipate . - Patient Problems (1) 40 weeks gestation of Current Visit: Yes Status: Acute (2) Velamentous insertion of umbilical cord Current Visit: Yes Status: Acute Qualifiers: Trimester: third trimester Qualified Code(s): O43.123 - Velamentous insertion of umbilical cord, third trimester Subjective - Subjective Date of service: 04/08/21 Principal diagnosis: 40 WEEKS; IOL for Velamentous insertion Patient reports: other (rectal pressure) Objective - Vital Signs Vital Signs: Vital Signs - 12hr 04/08/21 04/08/21 04/08/21 06:20 06:24 06:29 Temperature Pulse Rate 89 74 75 Respiratory Rate Blood Pressure Blood Pressure [Right] O2 Sat by Pulse 98 98 99 Oximetry 04/08/21 04/08/21 04/08/21 06:30 06:35 06:40 Temperature Pulse Rate 71 87 75 Respiratory Rate Blood Pressure 109/58 Blood Pressure [Right] O2 Sat by Pulse 99 99 Oximetry 04/08/21 04/08/21 04/08/21 06:45 06:49 06:54 Temperature Pulse Rate 77 78 75 Respiratory Rate Blood Pressure Blood Pressure [Right] O2 Sat by Pulse 100 99 99 Oximetry 04/08/21 04/08/21 04/08/21 06:59 07:04 07:13 Temperature Pulse Rate 79 84 82 Respiratory Rate Blood Pressure Blood Pressure [Right] O2 Sat by Pulse 99 100 100 Oximetry 04/08/21 04/08/21 04/08/21 07:16 07:18 07:23 Temperature Pulse Rate 85 83 88 Respiratory Rate Blood Pressure 126/76 Blood Pressure [Right] O2 Sat by Pulse 99 100 Oximetry 04/08/21 04/08/21 04/08/21 07:28 07:30 07:33 Temperature Pulse Rate 93 H 80 82 Respiratory Rate Blood Pressure 137/83 Blood Pressure [Right] O2 Sat by Pulse 100 93 100 Oximetry 04/08/21 04/08/21 04/08/21 07:38 07:43 07:51 Temperature Pulse Rate 89 84 83 Respiratory Rate Blood Pressure Blood Pressure [Right] O2 Sat by Pulse 100 100 98 Oximetry 04/08/21 04/08/21 04/08/21 07:56 08:01 08:06 Temperature Pulse Rate 75 78 77 Respiratory Rate Blood Pressure Blood Pressure [Right] O2 Sat by Pulse 99 98 99 Oximetry 04/08/21 04/08/21 04/08/21 08:11 08:16 08:21 Temperature Pulse Rate 74 74 75 Respiratory Rate Blood Pressure Blood Pressure [Right] O2 Sat by Pulse 99 100 100 Oximetry 04/08/21 04/08/21 04/08/21 08:26 08:29 08:31 Temperature Pulse Rate 77 83 76 Respiratory Rate Blood Pressure 116/72 Blood Pressure [Right] O2 Sat by Pulse 99 98 Oximetry 04/08/21 04/08/21 04/08/21 08:36 08:41 08:50 Temperature Pulse Rate 80 68 81 Respiratory Rate Blood Pressure Blood Pressure [Right] O2 Sat by Pulse 99 98 99 Oximetry 04/08/21 04/08/21 04/08/21 08:55 09:00 09:05 Temperature Pulse Rate 75 77 75 Respiratory Rate Blood Pressure Blood Pressure [Right] O2 Sat by Pulse 99 98 99 Oximetry 04/08/21 04/08/21 04/08/21 09:10 09:15 09:20 Temperature Pulse Rate 74 73 74 Respiratory Rate Blood Pressure Blood Pressure [Right] O2 Sat by Pulse 100 100 99 Oximetry 04/08/21 04/08/21 04/08/21 09:23 09:25 09:30 Temperature Pulse Rate 75 73 79 Respiratory Rate Blood Pressure 112/56 Blood Pressure [Right] O2 Sat by Pulse 89 99 97 Oximetry 04/08/21 04/08/21 04/08/21 09:32 09:35 09:40 Temperature Pulse Rate 87 76 72 Respiratory Rate Blood Pressure Blood Pressure [Right] O2 Sat by Pulse 91 98 99 Oximetry 04/08/21 04/08/21 04/08/21 09:45 09:50 09:55 Temperature Pulse Rate 65 67 62 Respiratory Rate Blood Pressure Blood Pressure [Right] O2 Sat by Pulse 99 100 100 Oximetry 04/08/21 04/08/21 04/08/21 10:00 10:03 10:05 Temperature Pulse Rate 81 86 83 Respiratory Rate Blood Pressure Blood Pressure [Right] O2 Sat by Pulse 98 87 88 Oximetry 04/08/21 04/08/21 04/08/21 10:10 10:11 10:15 Temperature Pulse Rate 78 82 80 Respiratory Rate Blood Pressure Blood Pressure [Right] O2 Sat by Pulse 97 94 98 Oximetry 04/08/21 04/08/21 04/08/21 10:19 10:20 10:27 Temperature Pulse Rate 74 77 Respiratory Rate Blood Pressure Blood Pressure [Right] O2 Sat by Pulse 91 97 79 L Oximetry 04/08/21 04/08/21 04/08/21 10:28 10:31 10:32 Temperature Pulse Rate 89 82 89 Respiratory Rate Blood Pressure 115/67 Blood Pressure [Right] O2 Sat by Pulse 94 98 Oximetry 04/08/21 04/08/21 04/08/21 10:37 10:42 10:47 Temperature Pulse Rate 68 73 74 Respiratory Rate Blood Pressure Blood Pressure [Right] O2 Sat by Pulse 100 100 100 Oximetry 04/08/21 04/08/21 04/08/21 10:52 10:57 11:02 Temperature Pulse Rate 72 77 76 Respiratory Rate Blood Pressure Blood Pressure [Right] O2 Sat by Pulse 100 100 100 Oximetry 04/08/21 04/08/21 04/08/21 11:07 11:12 11:17 Temperature Pulse Rate 69 71 76 Respiratory Rate Blood Pressure Blood Pressure [Right] O2 Sat by Pulse 100 100 100 Oximetry 04/08/21 04/08/21 04/08/21 11:22 11:35 11:36 Temperature Pulse Rate 85 57 L 81 Respiratory Rate Blood Pressure Blood Pressure [Right] O2 Sat by Pulse 100 97 92 Oximetry 04/08/21 04/08/21 04/08/21 11:40 11:45 11:46 Temperature Pulse Rate 74 78 67 Respiratory Rate Blood Pressure 121/71 Blood Pressure [Right] O2 Sat by Pulse 100 92 Oximetry 04/08/21 04/08/21 04/08/21 11:50 11:55 11:57 Temperature Pulse Rate 64 67 73 Respiratory Rate Blood Pressure Blood Pressure [Right] O2 Sat by Pulse 100 100 92 Oximetry 04/08/21 04/08/21 04/08/21 12:00 12:05 12:10 Temperature Pulse Rate 67 68 69 Respiratory Rate Blood Pressure Blood Pressure [Right] O2 Sat by Pulse 100 100 100 Oximetry 04/08/21 04/08/21 04/08/21 12:13 12:15 12:20 Temperature 98.8 F Pulse Rate 74 72 67 Respiratory 18 Rate Blood Pressure Blood Pressure 121/71 [Right] O2 Sat by Pulse 100 100 100 Oximetry 04/08/21 04/08/21 04/08/21 12:22 12:25 12:30 Temperature Pulse Rate 79 83 69 Respiratory Rate Blood Pressure Blood Pressure [Right] O2 Sat by Pulse 94 99 100 Oximetry 04/08/21 04/08/21 04/08/21 12:31 12:35 12:40 Temperature Pulse Rate 68 77 82 Respiratory Rate Blood Pressure 110/58 Blood Pressure [Right] O2 Sat by Pulse 100 100 Oximetry 04/08/21 04/08/21 04/08/21 12:45 12:50 12:55 Temperature Pulse Rate 79 76 76 Respiratory Rate Blood Pressure Blood Pressure [Right] O2 Sat by Pulse 100 99 99 Oximetry 04/08/21 04/08/21 04/08/21 13:00 13:05 13:10 Temperature Pulse Rate 72 75 72 Respiratory Rate Blood Pressure Blood Pressure [Right] O2 Sat by Pulse 100 100 99 Oximetry 04/08/21 04/08/21 04/08/21 13:15 13:20 13:25 Temperature Pulse Rate 70 77 76 Respiratory Rate Blood Pressure Blood Pressure [Right] O2 Sat by Pulse 99 100 100 Oximetry 04/08/21 04/08/21 04/08/21 13:29 13:30 13:35 Temperature Pulse Rate 73 82 70 Respiratory Rate Blood Pressure 125/61 Blood Pressure [Right] O2 Sat by Pulse 100 100 Oximetry 04/08/21 04/08/21 04/08/21 13:40 13:45 13:50 Temperature Pulse Rate 72 83 78 Respiratory Rate Blood Pressure Blood Pressure [Right] O2 Sat by Pulse 100 100 100 Oximetry 04/08/21 04/08/21 04/08/21 14:01 14:06 14:11 Temperature Pulse Rate 88 78 Respiratory Rate Blood Pressure Blood Pressure [Right] O2 Sat by Pulse 95 100 100 Oximetry 04/08/21 04/08/21 04/08/21 14:16 14:21 14:26 Temperature Pulse Rate 72 70 76 Respiratory Rate Blood Pressure Blood Pressure [Right] O2 Sat by Pulse 99 100 100 Oximetry 04/08/21 04/08/21 04/08/21 14:29 14:45 14:50 Temperature Pulse Rate 75 74 80 Respiratory Rate Blood Pressure 123/56 Blood Pressure [Right] O2 Sat by Pulse 100 100 Oximetry 04/08/21 04/08/21 04/08/21 14:55 15:00 15:05 Temperature Pulse Rate 90 73 79 Respiratory Rate Blood Pressure Blood Pressure [Right] O2 Sat by Pulse 100 100 100 Oximetry 04/08/21 04/08/21 04/08/21 15:10 15:17 15:19 Temperature Pulse Rate 79 79 72 Respiratory Rate Blood Pressure 138/80 Blood Pressure [Right] O2 Sat by Pulse 99 98 Oximetry 04/08/21 04/08/21 04/08/21 15:22 15:27 15:28 Temperature Pulse Rate 77 88 83 Respiratory Rate Blood Pressure 154/80 Blood Pressure [Right] O2 Sat by Pulse 100 100 Oximetry 04/08/21 04/08/21 04/08/21 15:30 15:32 15:37 Temperature Pulse Rate 76 72 74 Respiratory Rate Blood Pressure 136/65 135/71 Blood Pressure [Right] O2 Sat by Pulse 99 98 Oximetry 04/08/21 04/08/21 04/08/21 15:41 15:42 15:47 Temperature Pulse Rate 75 79 90 Respiratory Rate Blood Pressure 136/73 Blood Pressure [Right] O2 Sat by Pulse 99 99 Oximetry 04/08/21 04/08/21 04/08/21 15:52 15:56 15:57 Temperature Pulse Rate 91 H 70 85 Respiratory Rate Blood Pressure 135/72 Blood Pressure [Right] O2 Sat by Pulse 100 100 Oximetry 04/08/21 04/08/21 04/08/21 16:02 16:07 16:11 Temperature Pulse Rate 85 77 71 Respiratory Rate Blood Pressure 131/75 Blood Pressure [Right] O2 Sat by Pulse 100 100 Oximetry 04/08/21 04/08/21 04/08/21 16:12 16:17 16:22 Temperature Pulse Rate 85 73 65 Respiratory Rate Blood Pressure Blood Pressure [Right] O2 Sat by Pulse 100 100 100 Oximetry 04/08/21 04/08/21 04/08/21 16:27 16:30 16:32 Temperature Pulse Rate 62 73 71 Respiratory Rate Blood Pressure 126/58 Blood Pressure [Right] O2 Sat by Pulse 100 88 100 Oximetry 04/08/21 04/08/21 04/08/21 16:37 16:41 16:42 Temperature Pulse Rate 67 61 62 Respiratory Rate Blood Pressure 121/61 Blood Pressure [Right] O2 Sat by Pulse 100 99 Oximetry 04/08/21 04/08/21 04/08/21 16:47 16:52 16:57 Temperature Pulse Rate 61 64 70 Respiratory Rate Blood Pressure 119/61 Blood Pressure [Right] O2 Sat by Pulse 100 100 100 Oximetry 04/08/21 04/08/21 04/08/21 17:02 17:07 17:12 Temperature Pulse Rate 70 67 71 Respiratory Rate Blood Pressure 111/71 Blood Pressure [Right] O2 Sat by Pulse 100 100 100 Oximetry 04/08/21 04/08/21 04/08/21 17:17 17:22 17:25 Temperature Pulse Rate 66 67 60 Respiratory Rate Blood Pressure 110/59 Blood Pressure [Right] O2 Sat by Pulse 100 100 Oximetry 04/08/21 04/08/21 04/08/21 17:27 17:32 17:37 Temperature Pulse Rate 65 70 66 Respiratory Rate Blood Pressure Blood Pressure [Right] O2 Sat by Pulse 100 100 100 Oximetry 04/08/21 04/08/21 04/08/21 17:41 17:42 17:47 Temperature 98.3 F Pulse Rate 73 74 65 Respiratory Rate Blood Pressure 121/63 Blood Pressure [Right] O2 Sat by Pulse 100 99 Oximetry 04/08/21 04/08/21 04/08/21 17:52 17:56 17:57 Temperature Pulse Rate 70 66 75 Respiratory Rate Blood Pressure 109/56 Blood Pressure [Right] O2 Sat by Pulse 99 100 Oximetry 04/08/21 04/08/21 04/08/21 18:02 18:07 18:10 Temperature Pulse Rate 83 75 74 Respiratory Rate Blood Pressure 112/66 Blood Pressure [Right] O2 Sat by Pulse 100 99 Oximetry 04/08/21 18:12 Temperature Pulse Rate 75 Respiratory Rate Blood Pressure Blood Pressure [Right] O2 Sat by Pulse 99 Oximetry - Exam Lungs: Normal air movement Abdomen: Present: normal appearance, soft Vulva: both: normal Uterus: Present: normal FHR: category 2 Uterine Contraction Monitor Mode: External Cervical Dilatation: 9 Cervical Effacement Percentage: 90 station: 0 Uterine Contraction Pattern: Regular Uterine Tone Measurement Phase: Contraction Uterine Contraction Intensity: Strong/Firm - Labs Labs: Abnormal Labs 04/07/21 Unknown MCHC 36 H RDW 15.3 H Laboratory Results - last 24 hr 04/07/21 04/07/21 04/07/21 18:30 Unknown Unknown WBC 7.6 RBC 4.01 Hgb 11.9 Hct 33.2 MCV 83 MCH 30 MCHC 36 H RDW 15.3 H Plt Count 203 Syphilis IgG Antibody Nonreactive Coronavirus (PCR) Blood Type O POSITIVE Antibody Screen Negative 04/08/21 09:35 WBC RBC Hgb Hct MCV MCH MCHC RDW Plt Count Syphilis IgG Antibody Coronavirus (PCR) Negative Blood Type Antibody Screen
--- NOTE | 2021-04-08 19:54 | Progress Note ---
Assessment and Plan A: 30 y.o. @ 40 wks, active labor. Cervical exam /+1. P: Reposition pt in bed. Labor down for 30 minutes. Anticipate . Subjective - Subjective Date of service: 04/08/21 (Pt comfortable with epidural. ) Principal diagnosis: 40 WEEKS; IOL for Velamentous insertion Patient reports: other (Feeling some intermittent lower abdominal pressure. ) Objective - Vital Signs Vital Signs: Vital Signs - 12hr 04/08/21 04/08/21 04/08/21 07:51 07:56 08:01 Temperature Pulse Rate 83 75 78 Respiratory Rate Blood Pressure Blood Pressure [Right] O2 Sat by Pulse 98 99 98 Oximetry O2 Sat by Pulse Oximetry [ Bilateral] 04/08/21 04/08/21 04/08/21 08:06 08:11 08:16 Temperature Pulse Rate 77 74 74 Respiratory Rate Blood Pressure Blood Pressure [Right] O2 Sat by Pulse 99 99 100 Oximetry O2 Sat by Pulse Oximetry [ Bilateral] 04/08/21 04/08/21 04/08/21 08:21 08:26 08:29 Temperature Pulse Rate 75 77 83 Respiratory Rate Blood Pressure 116/72 Blood Pressure [Right] O2 Sat by Pulse 100 99 Oximetry O2 Sat by Pulse Oximetry [ Bilateral] 04/08/21 04/08/21 04/08/21 08:31 08:36 08:41 Temperature Pulse Rate 76 80 68 Respiratory Rate Blood Pressure Blood Pressure [Right] O2 Sat by Pulse 98 99 98 Oximetry O2 Sat by Pulse Oximetry [ Bilateral] 04/08/21 04/08/21 04/08/21 08:50 08:55 09:00 Temperature Pulse Rate 81 75 77 Respiratory Rate Blood Pressure Blood Pressure [Right] O2 Sat by Pulse 99 99 98 Oximetry O2 Sat by Pulse Oximetry [ Bilateral] 04/08/21 04/08/21 04/08/21 09:05 09:10 09:15 Temperature Pulse Rate 75 74 73 Respiratory Rate Blood Pressure Blood Pressure [Right] O2 Sat by Pulse 99 100 100 Oximetry O2 Sat by Pulse Oximetry [ Bilateral] 04/08/21 04/08/21 04/08/21 09:20 09:23 09:25 Temperature Pulse Rate 74 75 73 Respiratory Rate Blood Pressure Blood Pressure [Right] O2 Sat by Pulse 99 89 99 Oximetry O2 Sat by Pulse Oximetry [ Bilateral] 04/08/21 04/08/21 04/08/21 09:30 09:32 09:35 Temperature Pulse Rate 79 87 76 Respiratory Rate Blood Pressure 112/56 Blood Pressure [Right] O2 Sat by Pulse 97 91 98 Oximetry O2 Sat by Pulse Oximetry [ Bilateral] 04/08/21 04/08/21 04/08/21 09:40 09:45 09:50 Temperature Pulse Rate 72 65 67 Respiratory Rate Blood Pressure Blood Pressure [Right] O2 Sat by Pulse 99 99 100 Oximetry O2 Sat by Pulse Oximetry [ Bilateral] 04/08/21 04/08/21 04/08/21 09:55 10:00 10:03 Temperature Pulse Rate 62 81 86 Respiratory Rate Blood Pressure Blood Pressure [Right] O2 Sat by Pulse 100 98 87 Oximetry O2 Sat by Pulse Oximetry [ Bilateral] 04/08/21 04/08/21 04/08/21 10:05 10:10 10:11 Temperature Pulse Rate 83 78 82 Respiratory Rate Blood Pressure Blood Pressure [Right] O2 Sat by Pulse 88 97 94 Oximetry O2 Sat by Pulse Oximetry [ Bilateral] 04/08/21 04/08/21 04/08/21 10:15 10:19 10:20 Temperature Pulse Rate 80 74 77 Respiratory Rate Blood Pressure Blood Pressure [Right] O2 Sat by Pulse 98 91 97 Oximetry O2 Sat by Pulse Oximetry [ Bilateral] 04/08/21 04/08/21 04/08/21 10:27 10:28 10:31 Temperature Pulse Rate 89 82 Respiratory Rate Blood Pressure 115/67 Blood Pressure [Right] O2 Sat by Pulse 79 L 94 Oximetry O2 Sat by Pulse Oximetry [ Bilateral] 04/08/21 04/08/21 04/08/21 10:32 10:37 10:42 Temperature Pulse Rate 89 68 73 Respiratory Rate Blood Pressure Blood Pressure [Right] O2 Sat by Pulse 98 100 100 Oximetry O2 Sat by Pulse Oximetry [ Bilateral] 04/08/21 04/08/21 04/08/21 10:47 10:52 10:57 Temperature Pulse Rate 74 72 77 Respiratory Rate Blood Pressure Blood Pressure [Right] O2 Sat by Pulse 100 100 100 Oximetry O2 Sat by Pulse Oximetry [ Bilateral] 04/08/21 04/08/21 04/08/21 11:02 11:07 11:12 Temperature Pulse Rate 76 69 71 Respiratory Rate Blood Pressure Blood Pressure [Right] O2 Sat by Pulse 100 100 100 Oximetry O2 Sat by Pulse Oximetry [ Bilateral] 04/08/21 04/08/21 04/08/21 11:17 11:22 11:35 Temperature Pulse Rate 76 85 57 L Respiratory Rate Blood Pressure Blood Pressure [Right] O2 Sat by Pulse 100 100 97 Oximetry O2 Sat by Pulse Oximetry [ Bilateral] 04/08/21 04/08/21 04/08/21 11:36 11:40 11:45 Temperature Pulse Rate 81 74 78 Respiratory Rate Blood Pressure Blood Pressure [Right] O2 Sat by Pulse 92 100 92 Oximetry O2 Sat by Pulse Oximetry [ Bilateral] 04/08/21 04/08/21 04/08/21 11:46 11:50 11:55 Temperature Pulse Rate 67 64 67 Respiratory Rate Blood Pressure 121/71 Blood Pressure [Right] O2 Sat by Pulse 100 100 Oximetry O2 Sat by Pulse Oximetry [ Bilateral] 04/08/21 04/08/21 04/08/21 11:57 12:00 12:05 Temperature Pulse Rate 73 67 68 Respiratory Rate Blood Pressure Blood Pressure [Right] O2 Sat by Pulse 92 100 100 Oximetry O2 Sat by Pulse Oximetry [ Bilateral] 04/08/21 04/08/21 04/08/21 12:10 12:13 12:15 Temperature 98.8 F Pulse Rate 69 74 72 Respiratory 18 Rate Blood Pressure Blood Pressure 121/71 [Right] O2 Sat by Pulse 100 100 100 Oximetry O2 Sat by Pulse Oximetry [ Bilateral] 04/08/21 04/08/21 04/08/21 12:20 12:22 12:25 Temperature Pulse Rate 67 79 83 Respiratory Rate Blood Pressure Blood Pressure [Right] O2 Sat by Pulse 100 94 99 Oximetry O2 Sat by Pulse Oximetry [ Bilateral] 04/08/21 04/08/21 04/08/21 12:30 12:31 12:35 Temperature Pulse Rate 69 68 77 Respiratory Rate Blood Pressure 110/58 Blood Pressure [Right] O2 Sat by Pulse 100 100 Oximetry O2 Sat by Pulse Oximetry [ Bilateral] 04/08/21 04/08/21 04/08/21 12:40 12:45 12:50 Temperature Pulse Rate 82 79 76 Respiratory Rate Blood Pressure Blood Pressure [Right] O2 Sat by Pulse 100 100 99 Oximetry O2 Sat by Pulse Oximetry [ Bilateral] 04/08/21 04/08/21 04/08/21 12:55 13:00 13:05 Temperature Pulse Rate 76 72 75 Respiratory Rate Blood Pressure Blood Pressure [Right] O2 Sat by Pulse 99 100 100 Oximetry O2 Sat by Pulse Oximetry [ Bilateral] 04/08/21 04/08/21 04/08/21 13:10 13:15 13:20 Temperature Pulse Rate 72 70 77 Respiratory Rate Blood Pressure Blood Pressure [Right] O2 Sat by Pulse 99 99 100 Oximetry O2 Sat by Pulse Oximetry [ Bilateral] 04/08/21 04/08/21 04/08/21 13:25 13:29 13:30 Temperature Pulse Rate 76 73 82 Respiratory Rate Blood Pressure 125/61 Blood Pressure [Right] O2 Sat by Pulse 100 100 Oximetry O2 Sat by Pulse Oximetry [ Bilateral] 04/08/21 04/08/21 04/08/21 13:35 13:40 13:45 Temperature Pulse Rate 70 72 83 Respiratory Rate Blood Pressure Blood Pressure [Right] O2 Sat by Pulse 100 100 100 Oximetry O2 Sat by Pulse Oximetry [ Bilateral] 04/08/21 04/08/21 04/08/21 13:50 14:01 14:06 Temperature Pulse Rate 78 88 Respiratory Rate Blood Pressure Blood Pressure [Right] O2 Sat by Pulse 100 95 100 Oximetry O2 Sat by Pulse Oximetry [ Bilateral] 04/08/21 04/08/21 04/08/21 14:11 14:16 14:21 Temperature Pulse Rate 78 72 70 Respiratory Rate Blood Pressure Blood Pressure [Right] O2 Sat by Pulse 100 99 100 Oximetry O2 Sat by Pulse Oximetry [ Bilateral] 04/08/21 04/08/21 04/08/21 14:26 14:29 14:45 Temperature Pulse Rate 76 75 74 Respiratory Rate Blood Pressure 123/56 Blood Pressure [Right] O2 Sat by Pulse 100 100 Oximetry O2 Sat by Pulse Oximetry [ Bilateral] 04/08/21 04/08/21 04/08/21 14:50 14:55 15:00 Temperature Pulse Rate 80 90 73 Respiratory Rate Blood Pressure Blood Pressure [Right] O2 Sat by Pulse 100 100 100 Oximetry O2 Sat by Pulse Oximetry [ Bilateral] 04/08/21 04/08/21 04/08/21 15:05 15:10 15:17 Temperature Pulse Rate 79 79 79 Respiratory Rate Blood Pressure Blood Pressure [Right] O2 Sat by Pulse 100 99 98 Oximetry O2 Sat by Pulse Oximetry [ Bilateral] 04/08/21 04/08/21 04/08/21 15:19 15:22 15:27 Temperature Pulse Rate 72 77 88 Respiratory Rate Blood Pressure 138/80 Blood Pressure [Right] O2 Sat by Pulse 100 100 Oximetry O2 Sat by Pulse Oximetry [ Bilateral] 04/08/21 04/08/21 04/08/21 15:28 15:30 15:32 Temperature Pulse Rate 83 76 72 Respiratory Rate Blood Pressure 154/80 136/65 Blood Pressure [Right] O2 Sat by Pulse 99 Oximetry O2 Sat by Pulse Oximetry [ Bilateral] 04/08/21 04/08/21 04/08/21 15:37 15:41 15:42 Temperature Pulse Rate 74 75 79 Respiratory Rate Blood Pressure 135/71 136/73 Blood Pressure [Right] O2 Sat by Pulse 98 99 Oximetry O2 Sat by Pulse Oximetry [ Bilateral] 04/08/21 04/08/21 04/08/21 15:47 15:52 15:56 Temperature Pulse Rate 90 91 H 70 Respiratory Rate Blood Pressure 135/72 Blood Pressure [Right] O2 Sat by Pulse 99 100 Oximetry O2 Sat by Pulse Oximetry [ Bilateral] 04/08/21 04/08/21 04/08/21 15:57 16:02 16:07 Temperature Pulse Rate 85 85 77 Respiratory Rate Blood Pressure Blood Pressure [Right] O2 Sat by Pulse 100 100 100 Oximetry O2 Sat by Pulse Oximetry [ Bilateral] 04/08/21 04/08/21 04/08/21 16:11 16:12 16:17 Temperature Pulse Rate 71 85 73 Respiratory Rate Blood Pressure 131/75 Blood Pressure [Right] O2 Sat by Pulse 100 100 Oximetry O2 Sat by Pulse Oximetry [ Bilateral] 04/08/21 04/08/21 04/08/21 16:22 16:27 16:30 Temperature Pulse Rate 65 62 73 Respiratory Rate Blood Pressure 126/58 Blood Pressure [Right] O2 Sat by Pulse 100 100 88 Oximetry O2 Sat by Pulse Oximetry [ Bilateral] 04/08/21 04/08/21 04/08/21 16:32 16:37 16:41 Temperature Pulse Rate 71 67 61 Respiratory Rate Blood Pressure 121/61 Blood Pressure [Right] O2 Sat by Pulse 100 100 Oximetry O2 Sat by Pulse Oximetry [ Bilateral] 04/08/21 04/08/21 04/08/21 16:42 16:47 16:52 Temperature Pulse Rate 62 61 64 Respiratory Rate Blood Pressure Blood Pressure [Right] O2 Sat by Pulse 99 100 100 Oximetry O2 Sat by Pulse Oximetry [ Bilateral] 04/08/21 04/08/21 04/08/21 16:57 17:02 17:07 Temperature Pulse Rate 70 70 67 Respiratory Rate Blood Pressure 119/61 Blood Pressure [Right] O2 Sat by Pulse 100 100 100 Oximetry O2 Sat by Pulse Oximetry [ Bilateral] 04/08/21 04/08/21 04/08/21 17:12 17:17 17:22 Temperature Pulse Rate 71 66 67 Respiratory Rate Blood Pressure 111/71 Blood Pressure [Right] O2 Sat by Pulse 100 100 100 Oximetry O2 Sat by Pulse Oximetry [ Bilateral] 04/08/21 04/08/21 04/08/21 17:25 17:27 17:32 Temperature Pulse Rate 60 65 70 Respiratory Rate Blood Pressure 110/59 Blood Pressure [Right] O2 Sat by Pulse 100 100 Oximetry O2 Sat by Pulse Oximetry [ Bilateral] 04/08/21 04/08/21 04/08/21 17:37 17:41 17:42 Temperature 98.3 F Pulse Rate 66 73 74 Respiratory Rate Blood Pressure 121/63 Blood Pressure [Right] O2 Sat by Pulse 100 100 Oximetry O2 Sat by Pulse Oximetry [ Bilateral] 04/08/21 04/08/21 04/08/21 17:47 17:52 17:56 Temperature Pulse Rate 65 70 66 Respiratory Rate Blood Pressure 109/56 Blood Pressure [Right] O2 Sat by Pulse 99 99 Oximetry O2 Sat by Pulse Oximetry [ Bilateral] 04/08/21 04/08/21 04/08/21 17:57 18:02 18:07 Temperature Pulse Rate 75 83 75 Respiratory Rate Blood Pressure Blood Pressure [Right] O2 Sat by Pulse 100 100 99 Oximetry O2 Sat by Pulse Oximetry [ Bilateral] 04/08/21 04/08/21 04/08/21 18:10 18:12 18:17 Temperature Pulse Rate 74 75 73 Respiratory Rate Blood Pressure 112/66 Blood Pressure [Right] O2 Sat by Pulse 99 99 Oximetry O2 Sat by Pulse Oximetry [ Bilateral] 04/08/21 04/08/21 04/08/21 18:22 18:26 18:27 Temperature Pulse Rate 72 74 71 Respiratory Rate Blood Pressure 114/69 Blood Pressure [Right] O2 Sat by Pulse 99 100 Oximetry O2 Sat by Pulse Oximetry [ Bilateral] 04/08/21 04/08/21 04/08/21 18:32 18:37 18:40 Temperature Pulse Rate 76 73 75 Respiratory Rate Blood Pressure 120/69 Blood Pressure [Right] O2 Sat by Pulse 100 99 Oximetry O2 Sat by Pulse Oximetry [ Bilateral] 04/08/21 04/08/21 04/08/21 18:42 18:47 18:52 Temperature Pulse Rate 73 74 78 Respiratory Rate Blood Pressure Blood Pressure [Right] O2 Sat by Pulse 100 100 99 Oximetry O2 Sat by Pulse Oximetry [ Bilateral] 04/08/21 04/08/21 04/08/21 18:55 18:57 19:00 Temperature Pulse Rate 77 81 84 Respiratory Rate Blood Pressure 119/71 113/67 Blood Pressure [Right] O2 Sat by Pulse 99 Oximetry O2 Sat by Pulse Oximetry [ Bilateral] 04/08/21 04/08/21 04/08/21 19:02 19:07 19:12 Temperature 98.5 F Pulse Rate 92 H 76 78 Respiratory Rate Blood Pressure 130/67 Blood Pressure [Right] O2 Sat by Pulse 100 100 99 Oximetry O2 Sat by Pulse 100 Oximetry [ Bilateral] 04/08/21 04/08/21 04/08/21 19:17 19:22 19:27 Temperature Pulse Rate 81 75 82 Respiratory Rate Blood Pressure 128/76 Blood Pressure [Right] O2 Sat by Pulse 99 100 100 Oximetry O2 Sat by Pulse Oximetry [ Bilateral] 04/08/21 04/08/21 04/08/21 19:32 19:37 19:42 Temperature Pulse Rate 77 76 78 Respiratory Rate Blood Pressure 119/71 Blood Pressure [Right] O2 Sat by Pulse 100 100 100 Oximetry O2 Sat by Pulse Oximetry [ Bilateral] 04/08/21 19:47 Temperature Pulse Rate 87 Respiratory Rate Blood Pressure Blood Pressure [Right] O2 Sat by Pulse 100 Oximetry O2 Sat by Pulse Oximetry [ Bilateral] - Exam Narrative Exam: Pt feeling some intermittent lower abdominal pressure but no urge to push. Pt repositioned to the fowlers position in bed. Explained the plan to patient: will let her labor down for 30 minutes and then come back and see how she does pushing. Pt verbalized understanding. Breasts: deferred Cardiovascular: Regular rate Lungs: Normal air movement Abdomen: Present: normal appearance Vulva: both: normal FHR: category 1 Uterine Contraction Monitor Mode: External Cervical Dilatation: 10 (Blood show noted on peripad.) Cervical Effacement Percentage: 100 station: +1 Uterine Contraction Pattern: Regular Uterine Tone Measurement Phase: Resting Uterine Contraction Intensity: Strong/Firm - Labs Labs: Abnormal Labs 04/07/21 Unknown MCHC 36 H RDW 15.3 H Laboratory Results - last 24 hr 04/08/21 09:35 Coronavirus (PCR) Negative
--- NOTE | 2021-04-08 22:00 | Procedure Note ---
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 to mothers abdomen for skin to skin. Spontaneous delivery of placenta, complete, intact, 3 vessels, velamentous insertion noted. Placenta sent to pathology. Perineum and vagina inspected, 2nd degree laceration noted. Repaired with 2-0 SH. Sponges and instruments counted X2 with RN and correct X2. and mother left in stable condition in the care of RN. Infant weight 7-6. Apgars 8,9. QBL 100. - A at 1 minute: 8 at 5 minutes: 9 Infant Gender: Female (Kiara, 7-6)
[2021-04-08] MEDS ORDERED: PROMETHAZINE 25 MG RECT SUPP PR PRN (22:29)
[2021-04-08] MEDS ORDERED: MAGNESIUM HYDROXIDE (MOM) ORAL LIQD UDC PO PRN (22:29)
[2021-04-08] MEDS ORDERED: LANOLIN/ZINC/DIMETHICONE (LANSINOH) 7 GM TP PRN ×2 (22:29)
[2021-04-08] MEDS ORDERED: HYDROCORTISONE 25 MG RECTAL SUPP PR PRN (22:29)
[2021-04-08] MEDS ORDERED: WITCH HAZEL/ GLYCERIN PAD TP PRN (22:29)
[2021-04-08] MEDS ORDERED: ONDANSETRON 4 MG/2 ML INJ IV PRN (22:29)
[2021-04-08] MEDS ORDERED: BENZOCAINE/MENTHOL 20/0.5% TOP SPRAY 56 GM TP PRN (22:29)
[2021-04-08] MEDS ORDERED: miSOPROStol 100 MCG TAB PR PRN (22:29)
[2021-04-08] MEDS ORDERED: PROMETHAZINE 25 MG TAB PO PRN (22:29)
[2021-04-08] MEDS ORDERED: oxyCODONE /ACETAMINOPHEN 5-325MG TAB PO PRN (22:29)
[2021-04-08] MEDS ORDERED: ACETAMINOPHEN 500 MG TAB PO PRN (22:29)
[2021-04-08] MEDS ORDERED: diphenhydrAMINE 25 MG CAP PO PRN (22:29)
[2021-04-08] MEDS ORDERED: OXYTOCIN DRIP 30 UNITS/500 ML BAG IV SCH (23:00)
[2021-04-09] MEDS: IBUPROFEN 800 MG TAB PO SCH ×5 (00:55→23:33)
[2021-04-09] MEDS ORDERED: TETANUS,DIPH,PERTUSS(ACELL) VACCINE 0.5 ML SYRINGE IM ONE (06:00)
--- NOTE | 2021-04-09 08:51 | Progress Note ---
Assessment and Plan Pt standing in room with swaddled in bassinet at bedside. Denies having any complaints at this time. Reports ambulating, voiding, eating, and passing flatus without difficulty. POC d/w pt. Questions encouraged and addressed. Pt reports undecided re: control. Precautions reviewed. Anticipate dc home tmrw with - Patient Problems (1) (normal spontaneous vaginal delivery) Current Visit: Yes Status: Acute Plan to address problem: continue pathway Subjective - Subjective Date of service: 04/09/21 Principal diagnosis: PP Interval history: EDC Confirmation: 04/08/2021 Past History : 2 Term Births: 0 Premature Births: 0 Living Children: 0 Para: 0 Mult. Births: 0 Prev : 0 Prev. attempt? 0 Aborta: 1 Elect. Ab: 0 Spont. Ab: 0 Ectopics: 1 # 1 Delivery date: 2018 Weeks Gestation: 4 Delivery type: ectopic [place] [facility] [place]: methotexate; "bled alot" no transfusion Risk Factors: Smoked Tobacco Use: Never smoker Smokeless Tobacco Use: Never Passive smoke exposure: no Drug use: no HIV high-risk behavior: no Alcohol use: yes Exercise: no Seatbelt use: 100 % Dietary Counseling: pn yes Past Medical History: Reviewed history from 08/06/2020 and no changes required: Negative Past Medical History Past Surgical History: Reviewed history from 08/06/2020 and no changes required: Tonsillectomy Past Medical History Surgery (Non-registered nurse cardiac telemetry): Tonsillectomy Abnormal PAP: negative BRAYAN Exposure: negative Infertility: negative Uterine Anomaly: negative Uterine Surgery (not C/S): negative Social Hx: Patient is single Smoking History: Patient has never smoked. Infection History Hx of STD: GC/CT/Trich HIV Risk Eval: no Hepatitis B Risk Eval: low risk Personal hx. of genital herpes: no Partner hx. of genital herpes: no Varicella/Chicken Pox Status: Immunized TB Risk: no Infection History Comments: Varicella + condyloma Chlamydia 2010 Genetic History Congenital Heart Defect: Mom: no Dad: no Emiliana Disease: Mom: no Dad: no Thalassemia Mom: no Dad: no Neural Tube Defect Mom: no Dad: no Down's Syndrome Mom: no Dad: no Bob-Sachs Mom: no Dad: no Sickle Cell Disease/Trait Mom: no Dad: no Hemophilia Mom: no Dad: no Muscular Dystrophy Mom: no Dad: no Cystic Fibrosis Mom: no Dad: no Valdo Chorea Mom: no Dad: no Mental Retardation Mom: no Dad: no Fragile X Mom: no Dad: no Other Genetic/Chromosomal Disorder Mom: no Dad: no Child w/other defect Mom: no Dad: no Enviromental Exposures Xray Exposure: no Medication, drug, or alcohol use since LMP: no Chemical/Other Exposure: no Exposure to Cat Liter: no Hx of Parvovirus (Fifth Disease): no Occupational Exposure to Children: none Active Medications (reviewed today): None Current Allergies (reviewed today): PENICILLIN (Critical) Patient reports: appetite normal, voiding normally, pain well controlled, flatus, ambulating normally Addison: doing well, nursing well Objective - Vital Signs Latest vital signs: Vital Signs Temp Pulse Resp BP BP Pulse Ox Pulse Ox 04/09/21 06:04 98 04/09/21 04:48 98.2 F 88 20 114/69 98 04/09/21 03:35 98 04/09/21 01:30 98 04/08/21 23:30 100 04/08/21 23:25 98.3 F 68 18 125/69 100 04/08/21 22:54 88 118/75 04/08/21 22:53 85 100 04/08/21 22:48 99 H 98 04/08/21 22:46 93 H 115/68 04/08/21 22:43 77 99 04/08/21 22:38 72 99 04/08/21 22:33 71 99 04/08/21 22:31 67 117/65 04/08/21 22:28 74 100 04/08/21 22:23 74 99 04/08/21 22:18 73 100 04/08/21 22:16 72 119/64 04/08/21 22:13 85 100 04/08/21 22:08 78 100 04/08/21 22:03 85 99 04/08/21 22:01 82 114/63 04/08/21 21:58 86 99 04/08/21 21:53 98 H 98 04/08/21 21:48 98 H 98 04/08/21 21:46 83 119/58 04/08/21 21:43 103 H 99 04/08/21 21:38 84 99 04/08/21 21:33 90 100 04/08/21 21:32 90 122/57 04/08/21 21:28 91 H 100 04/08/21 21:26 105 H 188/149 04/08/21 21:23 122 H 100 04/08/21 21:18 131 H 100 04/08/21 21:13 101 H 100 04/08/21 21:08 147 H 100 04/08/21 21:03 87 100 04/08/21 20:58 136 H 99 04/08/21 20:55 85 118/63 04/08/21 20:54 95 H 94 04/08/21 20:53 83 100 04/08/21 20:48 89 100 04/08/21 20:43 95 H 100 04/08/21 20:42 114 H 94 04/08/21 20:41 101 H 121/79 04/08/21 20:38 98 H 98 04/08/21 20:32 117 H 98 04/08/21 20:28 92 H 135/68 04/08/21 20:27 91 H 100 04/08/21 20:22 121 H 100 04/08/21 20:17 103 H 100 04/08/21 20:12 87 100 04/08/21 20:10 86 131/74 04/08/21 20:07 85 99 04/08/21 20:02 86 100 04/08/21 19:57 105 H 100 04/08/21 19:56 86 136/75 04/08/21 19:52 90 100 04/08/21 19:47 87 100 04/08/21 19:42 78 119/71 100 04/08/21 19:37 76 100 04/08/21 19:32 77 100 04/08/21 19:27 82 128/76 100 04/08/21 19:22 75 100 04/08/21 19:17 81 99 04/08/21 19:12 98.5 F 78 130/67 99 100 04/08/21 19:07 76 100 04/08/21 19:02 92 H 100 04/08/21 19:00 84 113/67 04/08/21 18:57 81 99 04/08/21 18:55 77 119/71 04/08/21 18:52 78 99 04/08/21 18:47 74 100 04/08/21 18:42 73 100 04/08/21 18:40 75 120/69 04/08/21 18:37 73 99 04/08/21 18:32 76 100 04/08/21 18:27 71 100 04/08/21 18:26 74 114/69 04/08/21 18:22 72 99 04/08/21 18:17 73 99 04/08/21 18:12 75 99 04/08/21 18:10 74 112/66 04/08/21 18:07 75 99 04/08/21 18:02 83 100 04/08/21 17:57 75 100 04/08/21 17:56 66 109/56 04/08/21 17:52 70 99 04/08/21 17:47 65 99 04/08/21 17:42 98.3 F 74 100 04/08/21 17:41 73 121/63 04/08/21 17:37 66 100 04/08/21 17:32 70 100 04/08/21 17:27 65 100 04/08/21 17:25 60 110/59 04/08/21 17:22 67 100 04/08/21 17:17 66 100 04/08/21 17:12 71 111/71 100 04/08/21 17:07 67 100 04/08/21 17:02 70 100 04/08/21 16:57 70 119/61 100 04/08/21 16:52 64 100 04/08/21 16:47 61 100 04/08/21 16:42 62 99 04/08/21 16:41 61 121/61 04/08/21 16:37 67 100 04/08/21 16:32 71 100 04/08/21 16:30 73 88 04/08/21 16:27 62 126/58 100 04/08/21 16:22 65 100 04/08/21 16:17 73 100 04/08/21 16:12 85 100 04/08/21 16:11 71 131/75 04/08/21 16:07 77 100 04/08/21 16:02 85 100 04/08/21 15:57 85 100 04/08/21 15:56 70 135/72 04/08/21 15:52 91 H 100 04/08/21 15:47 90 99 04/08/21 15:42 79 99 04/08/21 15:41 75 136/73 04/08/21 15:37 74 135/71 98 04/08/21 15:32 72 99 04/08/21 15:30 76 136/65 04/08/21 15:28 83 154/80 04/08/21 15:27 88 100 04/08/21 15:22 77 100 04/08/21 15:19 72 138/80 04/08/21 15:17 79 98 04/08/21 15:10 79 99 04/08/21 15:05 79 100 04/08/21 15:00 73 100 04/08/21 14:55 90 100 04/08/21 14:50 80 100 04/08/21 14:45 74 100 04/08/21 14:29 75 123/56 04/08/21 14:26 76 100 04/08/21 14:21 70 100 04/08/21 14:16 72 99 04/08/21 14:11 78 100 04/08/21 14:06 88 100 04/08/21 14:01 95 04/08/21 13:50 78 100 04/08/21 13:45 83 100 04/08/21 13:40 72 100 04/08/21 13:35 70 100 04/08/21 13:30 82 100 04/08/21 13:29 73 125/61 04/08/21 13:25 76 100 04/08/21 13:20 77 100 04/08/21 13:15 70 99 04/08/21 13:10 72 99 04/08/21 13:05 75 100 04/08/21 13:00 72 100 04/08/21 12:55 76 99 04/08/21 12:50 76 99 04/08/21 12:45 79 100 04/08/21 12:40 82 100 04/08/21 12:35 77 100 04/08/21 12:31 68 110/58 04/08/21 12:30 69 100 04/08/21 12:25 83 99 04/08/21 12:22 79 94 04/08/21 12:20 67 100 04/08/21 12:15 72 100 04/08/21 12:13 98.8 F 74 18 121/71 100 04/08/21 12:10 69 100 04/08/21 12:05 68 100 04/08/21 12:00 67 100 04/08/21 11:57 73 92 04/08/21 11:55 67 100 04/08/21 11:50 64 100 04/08/21 11:46 67 121/71 04/08/21 11:45 78 92 04/08/21 11:40 74 100 04/08/21 11:36 81 92 04/08/21 11:35 57 L 97 04/08/21 11:22 85 100 04/08/21 11:17 76 100 04/08/21 11:12 71 100 04/08/21 11:07 69 100 04/08/21 11:02 76 100 04/08/21 10:57 77 100 04/08/21 10:52 72 100 04/08/21 10:47 74 100 04/08/21 10:42 73 100 04/08/21 10:37 68 100 04/08/21 10:32 89 98 04/08/21 10:31 82 115/67 04/08/21 10:28 89 94 04/08/21 10:27 79 L 04/08/21 10:20 77 97 04/08/21 10:19 74 91 04/08/21 10:15 80 98 04/08/21 10:11 82 94 04/08/21 10:10 78 97 04/08/21 10:05 83 88 04/08/21 10:03 86 87 04/08/21 10:00 81 98 04/08/21 09:55 62 100 04/08/21 09:50 67 100 04/08/21 09:45 65 99 04/08/21 09:40 72 99 04/08/21 09:35 76 98 04/08/21 09:32 87 91 04/08/21 09:30 79 112/56 97 04/08/21 09:25 73 99 04/08/21 09:23 75 89 04/08/21 09:20 74 99 04/08/21 09:15 73 100 04/08/21 09:10 74 100 04/08/21 09:05 75 99 04/08/21 09:00 77 98 04/08/21 08:55 75 99 Intake and Output 04/08/21 04/09/21 04/09/21 23:59 07:59 15:59 Intake Total 240 Output Total 250 300 Balance -250 -60 Intake: Oral 240 Output: Urine 250 300 Indwelling Catheter 250 Void 300 Other: Total, Intake Amount 240 Total, Output Amount 250 300 # Voids Void 1 Estimated Blood Loss 100 - Exam Breasts: Present: normal Cardiovascular: Present: Regular rate Lungs: Present: Normal air movement Abdomen: Present: normal appearance, soft. Absent: distention, guarding Vulva: both: normal Uterus: Present: normal, firm Extremities: Present: normal Comments: scant lochia noted on peripad
[2021-04-09 10:57] LABS: Hematocrit 33.1 % (30.3-42.9); Hemoglobin 11.9 gm/dl (10.1-14.3)
[2021-04-09] MEDS: PRENATAL VIT27-FE FUMARATE-FOLIC ACID VIT TAB PO SCH (12:35)
[2021-04-09] MEDS: DOCUSATE SODIUM 100 MG CAP PO SCH ×2 (12:35→23:34)
--- NOTE | 2021-04-09 21:20 | Post Anesthesia Evaluation ---
- Post Anesthesia Evaluation Patient Participated: Yes Airway Patent: Yes Stable Respiratory Function: Yes Nausea/Vomiting: No Temp > 96.8F: Yes Pain Manageable: Yes Adequeate Hydration: Yes Anesthesia Complications: No Block Receding Appropriately: Yes
[2021-04-10] MEDS: IBUPROFEN 800 MG TAB PO SCH (05:14)
--- NOTE | 2021-04-10 07:46 | Discharge Summary ---
Providers - Providers Date of Admission: 04/07/21 17:04 Date of discharge: 04/10/21 (pt desires discharge home) Attending physician: JOSY RAJPUT MD Primary care physician: KARLI PEREZ Hospitalization Reason for admission: induction of labor, IUP at term Delivery: Episiotomy: none Laceration: 2nd degree Other procedures: none complications: none Discharge diagnosis: IUP at term delivered [place] baby: female Condition at discharge: Good Disposition: 01 HOME / SELF CARE / HOMELESS - Discharge Diagnoses (1) (normal spontaneous vaginal delivery) Status: Acute Plan - Provider Discharge Summary Activity: routine, no sex for 6 weeks, no heavy lifting 4 weeks, no strenuous exercise Diet: routine Instructions: routine Additional instructions: [] Smoking cessation referral if applicable(refer to patient education folder for contact #) [] Refer to [facility]'s [facility] Booklet Call your doctor immediately for: * Fever > 100.5 * Heavy vaginal bleeding ( >1 pad per hour) * Severe persistent headache * Shortness of breath * Reddened, hot, painful area to leg or breast * Drainage or odor from incision. * Keep incision clean and dry at all times and follow doctor's instructions regarding bathing/showering Congratulations! Please call [phone] and schedule a appointment in 4 weeks. Thank you! - Follow up plan Follow up: KARLI PEREZ MD [Primary Care Provider] - 7 Days
[2021-04-10] MEDS: DOCUSATE SODIUM 100 MG CAP PO SCH (11:33)
[2021-04-10] MEDS: PRENATAL VIT27-FE FUMARATE-FOLIC ACID VIT TAB PO SCH (11:33)
[2021-04-10 18:57] VITALS: BP 114/74
== END 2021-04-10 16:33 | disposition home or self-care (01) | DRG 775 ==
LOC: LD 17:04 → OB 04-08 23:15
PROVIDERS: ADMIT Student in an Organized Health Care Education/Training Program; ATTEND Student in an Organized Health Care Education/Training Program
PROC: 10E0XZZ Delivery of Products of Conception, External Approach (ICD-10-PCS; principal; 2021-04-08)
PROC: 0KQM0ZZ Repair Perineum Muscle, Open Approach (ICD-10-PCS; 2021-04-08)
PROC: 3E0R3BZ Introduction of Anesthetic Agent into Spinal Canal, Percutaneous Approach (ICD-10-PCS; 2021-04-08)
PROC: 00HU33Z Insertion of Infusion Device into Spinal Canal, Percutaneous Approach (ICD-10-PCS; 2021-04-08)
PROC: 0U7C7ZZ Dilation of Cervix, Via Natural or Artificial Opening (ICD-10-PCS; 2021-04-08)
PROC: 3E0234Z Introduction of Serum, Toxoid and Vaccine into Muscle, Percutaneous Approach (ICD-10-PCS; 2021-04-09)
DX: O43.123 Velamentous insertion of umbilical cord, third trimester (principal); Z20.822 Contact with and (suspected) exposure to COVID-19; O70.1 Second degree perineal laceration during delivery; Z3A.39 39 weeks gestation of pregnancy; Z37.0 Single live birth; Z88.0 Allergy status to penicillin; Z23 Encounter for immunization
CPT/HCPCS: 36415; 85014; 85018; 85027; 86592; 86850; 86900; 86901; 88307; G0378; A6250; J0595; J2405; J2590; J7120; U0003